=== PATIENT | male | born 1975 | race Caucasian/White ===

== ENCOUNTER 2022-11-08 11:42 | Emergency (ER) | payer OTHER, SELFPAY ==
[2022-11-08 11:54] VITALS: BP 148/84; PULSE 82; RESP 16; TEMP 36.7; O2SAT 96; BMI 31.1
--- NOTE | 2022-11-08 13:09 | ED.SKABFB1 ---
HPI - Skin/Abscess/Foreign Bdy General Chief complaint: Skin/Abscess/Foreign Body Stated complaint: SPLINTER LEFT MIDDLE FINGER Time Seen by Provider: 11/08/22 13:07 Source: patient Mode of arrival: walk-in Limitations: no limitations History of Present Illness HPI narrative: pt presents to the emergency department complaining of left middle finger wood splinter. He states he was taken his boat and was not using gloves and splinter went underneath his nail on the left middle finger. He tried with nail clippers and tweezers to pull it out last night and was not able to pull it all out. He states today he is having increased pain. He thinks he could have an infection. His tetanus shot is up-to-date. He denies any other injury. He denies numbness. Related Data Previous Rx's Medication Instructions Recorded cephalexin 500 mg capsule 500 mg PO TID 7 days #21 caps 11/08/22 Allergies Allergy/AdvReac Type Severity Reaction Status Date / Time No Known Drug Allergies Allergy Verified 11/08/22 11:54 Review of Systems ROS Status of ROS 10 or more systems reviewed and unremarkable except as noted in history and below Exam Narrative Exam Narrative: Nurses notes and vital signs reviewed and patient is not hypoxic. General: Nontoxic, Well-appearing and in no apparent distress. Skin: Warm, dry, no pallor noted. No Rash Head: Normocephalic, atraumatic. Neck: Supple, non-tender. Eye: Pupils are equal, round and EOMI. No scleral icterus. Ears, Nose, Mouth, and Throat: TM clear, no posterior oropharynx erythema or nasal mucosal hypertrophy, uvula is mid-line Oral mucosa is moist Cardiovascular: Regular Rate and Rhythm without murmur, gallop or rub. Respiratory: No accessory muscle use or respiratory distress. Lungs are clear to auscultation, no wheezing, rales or rhonchi Chest Wall: no tenderness Back: No midline thoracic or lumbar vertebral tenderness. No CVA tenderness Musculoskeletal: Left middle finger with 3 visualized wooden splinters into the mid nail between the nail and the nail bed. There is no active bleeding. tenderness to palpation. There is brisk. normal ROM, no calf or popliteal tenderness, no lower extremity edema/swelling GI: Abdomen is soft, non-distended. Normal bowel sounds. No masses appreciated. No tenderness to palpation. No rebound, guarding, or rigidity noted. Neurological: A&O x4. No cranial nerve dysfunction observed. No truncal ataxia. Moves all extremities. Sensation intact. Psychiatric: Cooperative and interactive. Normal mood and affect. Constitutional Vital Signs - 24 hr 11/08/22 11:54 Temperature 98.1 F Pulse Rate [Monitor] 82 Respiratory Rate 16 Blood Pressure [Left Arm] 148/84 H Pulse Oximetry 96 Oxygen Delivery Method Room Air Course Vital Signs Vital signs: Vital Signs Temperature 98.1 F 11/08/22 11:54 Pulse Rate 82 11/08/22 11:54 Respiratory Rate 16 11/08/22 11:54 Blood Pressure 148/84 H 11/08/22 11:54 Pulse Oximetry 96 11/08/22 11:54 Oxygen Delivery Method Room Air 11/08/22 11:54 Temperature 98.1 F 11/08/22 11:54 Pulse Rate 82 11/08/22 11:54 Respiratory Rate 16 11/08/22 11:54 Blood Pressure 148/84 H 11/08/22 11:54 Pulse Oximetry 96 11/08/22 11:54 Oxygen Delivery Method Room Air 11/08/22 11:54 MDM - Skin/Abscess/Foreign Bdy MDM Narrative Medical decision making narrative: PROCEDURE:? SPLINTER REMOVAL?, I prepped the area with betadyne, and then with a sterile drape. Digital block was done with 1.5ml of bupivacaine.?Adequate anesthesia was obtained. Then utilizing a #11 blade scalpel I carefully dissected down to where the FB was located. amount of pus was drained.?Using and entertaining 18-gauge needle the foreign body was secured. Then, using curved hemostats, I was then able to easily remove the FB in its entirety.? 3 splinters were removed. The rest of the wound, and wound base were explored, and no other obvious FBs could be appreciated.? I then copiously irrigated the wound, and had the staff cover with a dressing.? The patient tolerated the procedure well.? I did explain the concern for infection, and to return to our ED immediately should they have any concerns.? I also explained that sometimes FBs can remain, and cannot always be visualized.? Finally, I recommended a wound check in about 2-3 days (or sooner, if any worsening). pt will be discharged on Keflex.Patient advised his friend gave him half of a [place] 10. At this time the patient is without objective evidence of an acute process requiring hospitalization or inpatient management. The patient has remained hemodynamically stable. No additional indication for emergent studies at this time. I answered all questions. Discussed discharge instructions including standard anticipatory guidance and what should prompt a return to the emergency department, including if they get worse are not getting better or develops any new or concerning symptoms. I've given them specific time frame in which to follow-up, and who to follow-up with. The patient demonstrates understanding. Patient is nontoxic and stable for discharge with outpatient follow-up. This note was created with the assistance of a speech recognition program. Although the intention is to generate documents that actually reflects the content of the visit, no guarantees can be provided that every mistake has been identified and corrected by editing. Differential Diagnosis Differential diagnosis: Likely abscess of skin or subcutaneous tissue and cellulitis Discharge Plan Discharge Chief Complaint: Skin/Abscess/Foreign Body Clinical Impression: Superficial foreign body of left middle finger, initial encounter Patient Disposition: Home, Self-Care Time of Disposition Decision: 14:41 Condition: Good Mode of Transportation: Private Vehicle Prescriptions / Home Meds: New cephalexin 500 mg capsule 500 mg PO TID 7 Days Qty: 21 0RF Instructions: Puncture Wound (ED) Additional Instructions: Wound care instructions. Follow-up with primary care doctor. Return to the emergency department with any CONCERNS as discussed. Stand Alone Forms: Portal Instructions Referrals: Physician,Non-Staff, MD [Primary Care Provider] - 1 week
[2022-11-08] MEDS: BUPIVACAINE HCL 0.25% PF 25 MG/10 ML VIAL 5 ML INJ (13:14)
== END 2022-11-08 14:49 | disposition home or self-care (01) ==
PROVIDERS: Emergency Provider Emergency Medicine
DX: S60.453A Superficial foreign body of left middle finger, initial encounter (principal); W45.8XXA Other foreign body or object entering through skin, initial encounter
CPT/HCPCS: 10120; 99284